=== PATIENT | male | born 1930 | race Caucasian/White ===

== ENCOUNTER → 2016-07-12 | Outpatient (CLI) | payer MEDICARE, BC ==
[2016-07-12 16:28] LABS: Blood Urea Nitrogen 33 mg/dL (9-20); Non-African American GFR(MDRD) >60 (>60 ml/min/1.73 sqM)
--- NOTE | 2016-07-13 08:08 | CT ---
EXAMINATION TYPE: CT angio neck DATE OF EXAM: 07/12/2016 7:47 PM COMPARISON: NONE HISTORY: Pt states of carotid stenosis. CT DLP: 259.5 mGycm CONTRAST: CTA cervical carotids is performed and with IV Contrast, patient injected with 65 mL of Omnipaque 350 . Contrast CTA of the cervical carotids was performed 3-D reconstruction imaging obtained at a separate workstation. Right carotid system: Mild plaque is seen of the right common carotid artery. There is mild plaque a lso noted at the carotid bulb. Estimated diameter reduction is less than 50%. ECA is patent. Righ t vertebral artery appears unremarkable. Left carotid system: Mild plaque is seen of the left common carotid artery. There is mild plaque als o noted at the carotid bulb. Estimated diameter reduction is approximately 50%. ECA is patent. Lef t vertebral artery appears unremarkable. IMPRESSION: 1. Estimated diameter reduction Right ICA less than 50% 2. Estimated diameter reduction Left ICA approximately 50%
== END | disposition home or self-care (01) ==
LOC: RADCTMAIN 15:44
PROVIDERS: ATTEND Internal Medicine
DX: I65.23 Occlusion and stenosis of bilateral carotid arteries (principal)
CPT/HCPCS: 82565; 84520; 70498; 36415; Q9967

== ENCOUNTER 2016-12-13 08:05 | Emergency (ER) | payer MEDICARE, BC ==
[2016-12-13 08:13] VITALS: BP 139/65; PULSE 58; RESP 18; TEMP 97
[2016-12-13] MEDS ORDERED: DIPH,PERTUS(ACELL)TETVAC-LF 0.5 ML VIAL IM ONE (08:41)
--- NOTE | 2016-12-13 08:44 | ED ---
General Adult HPI - General Chief complaint: Wound/Laceration Stated complaint: lac on rt arm Time Seen by Provider: 12/13/16 08:18 Source: patient, RN notes reviewed Mode of arrival: wheelchair Limitations: no limitations - History of Present Illness Initial comments: 86-year-old male who presents emergency room today with a chief complaint of a laceration to the back of the right forearm. He states he was prescribed 20 tripped falling against his tractor causing a laceration. He denies any head injury or loss consciousness. States unsure of his tetanus status. He denies any other complaints or associated symptoms. Patient denies any recent fever, chills, shortness of breath, chest pain, back pain, abdominal pain, nausea or vomiting, numbness or tingling, dysuria or hematuria, constipation or diarrhea, headaches or visual changes, or any other complaints. - Related Data Allergies Allergy/AdvReac Type Severity Reaction Status Date / Time No Known Allergies Allergy Verified 12/13/16 08:13 Review of Systems ROS Statement: Those systems with pertinent positive or pertinent negative responses have been documented in the HPI. ROS Other: All systems not noted in ROS Statement are negative. Past Medical History Past Medical History: Hypertension History of Any Multi-Drug Resistant Organisms: None Reported Past Surgical History: Unable to Obtain Past Psychological History: No Psychological Hx Reported Smoking Status: Never smoker Past Alcohol Use History: Occasional Past Drug Use History: None Reported General Exam - General Exam Comments Initial Comments: General: The patient is awake and alert, in no distress, and does not appear acutely ill. Neck: The neck is supple, there is no tenderness or JVD. Cardiovascular: There is a regular rate and rhythm. No murmur, rub or gallop is appreciated. Respiratory: Lungs are clear to auscultation, respirations are non-labored, breath sounds are equal. No wheezes, stridor, rales, or rhonchi. Musculoskeletal: Patient shows full range of motion. Sensation intact. Pulses equal bilaterally 2+. Strength 5/5 in all areas. Neurological: A&O x 3. CN II-XII intact, There are no obvious motor or sensory deficits. Coordination appears grossly intact. Speech is normal. Skin: 5 cm linear laceration to the posterior aspect of the right forearm. No active bleeding. Psychiatric: Normal mood and affect. Limitations: no limitations Course Vital Signs 12/13/16 08:08 Temperature 97.0 F L Pulse Rate 58 L Respiratory 18 Rate Blood Pressure 139/65 O2 Sat by Pulse 97 Oximetry Procedures - Procedures Initial comment: 5 cm linear laceration to the back of the right forearm. The skin was anesthetized with 1% lidocaine. The laceration was then cleansed with Betadine and irrigated with normal saline. The wound was inspected, and there was no evidence of injury to deep structures. No foreign body was noted in the wound. A total of 9 skin sutures were placed utilizing 4-0 nylon. Disposition Clinical Impression: Laceration Disposition: HOME SELF-CARE Condition: Good Instructions: Laceration (ED) Additional Instructions: Please return to the emergency room in 8-10 days to have sutures removed. Please watch for any signs of infection which may include increased pain, swelling, redness, fever or chills. Please return to emergency room for any signs of infection do occur. Please use clean soap and water over the area to prevent scabbing over your stitches. Please leave wound covered for the first 24-48 hours and then leave wound open to air. Please return to the emergency room for any other concerns. Referrals: Sergei Acevedo MD [Primary Care Provider] - 1-2 days Time of Disposition: 08:43
== END 2016-12-13 09:09 | disposition home or self-care (01) ==
LOC: EC 08:05
DX: S51.811A Laceration without foreign body of right forearm, initial encounter (principal); Z23 Encounter for immunization; W18.09XA Striking against other object with subsequent fall, initial encounter
CPT/HCPCS: 12002; 90471; 90715; 99282

== ENCOUNTER 2016-12-15 06:21 | Emergency (ER) | payer MEDICARE, BC ==
[2016-12-15 06:29] VITALS: RESP 18
--- NOTE | 2016-12-15 08:04 | XR ---
EXAMINATION TYPE: XR elbow complete RT DATE OF EXAM: 12/15/2016 CLINICAL HISTORY: Pain near suture site. TECHNIQUE: Frontal, lateral and oblique images of the right elbow are obtained. COMPARISON: None FINDINGS: There is no acute fracture/dislocation evident in the right elbow. Prior well-corticated f racture fragments are seen adjacent to the lateral epicondyles and anterior to the radius. The home health caregiver ior joint capsule is distended by joint effusion. Soft tissue swelling seen over the antecubital manuel a. IMPRESSION: 1. There is no acute fracture or dislocation in the right elbow. 2. Soft tissue swelling and joint effusion within the right elbow.
--- NOTE | 2016-12-15 08:17 | ED ---
General Adult HPI - General Chief complaint: Extremity Injury, Upper Stated complaint: arm pain-revisit after sutures Time Seen by Provider: 12/15/16 07:00 Source: patient, RN notes reviewed Mode of arrival: ambulatory Limitations: no limitations - History of Present Illness Initial comments: This is a 86-year-old male who presents emergency department after having fallen a couple days ago. Patient states he was in the emergency department that time to get sutured up. Patient states he had no elbow pain at that time but a couple days later started having significant elbow pain to the point where hurts even to lift his arm. Patient states it also hurts to palpate the elbow. Patient states his been no other injury since that time. Patient denies any hand pain and wrist pain or shoulder pain. Patient denies any other pain or any other complaints at this time. - Related Data Home Medications Medication Instructions Recorded Confirmed Aspirin [Children's Aspirin] 81 mg PO DAILY 12/15/16 12/15/16 Enalapril (Unknown Dose) 1 tab PO DAILY 12/15/16 12/15/16 Simvastatin (Unknown Dose) 1 tab PO DAILY 12/15/16 12/15/16 Allergies Allergy/AdvReac Type Severity Reaction Status Date / Time No Known Allergies Allergy Verified 12/15/16 06:29 Review of Systems ROS Statement: Those systems with pertinent positive or pertinent negative responses have been documented in the HPI. ROS Other: All systems not noted in ROS Statement are negative. Past Medical History Past Medical History: Hearing Disorder / Deafness, Hyperlipidemia, Hypertension Additional Past Medical History / Comment(s): [facility] History of Any Multi-Drug Resistant Organisms: None Reported Past Surgical History: Coronary Bypass/CABG, Orthopedic Surgery Additional Past Surgical History / Comment(s): bypass 2005, right knee Past Psychological History: No Psychological Hx Reported Smoking Status: Never smoker Past Alcohol Use History: Daily Past Drug Use History: None Reported General Exam - General Exam Comments Initial Comments: GENERAL Patient is well-developed and well-nourished. Patient is in mild distress. EYES Patient's pupils are equal and round. Extraocular motion is intact SKIN Unremarkable NEURO The patient is alert and oriented 3 PYSCH Patient has normal interpersonal interactions. MUSCULOSKELETAL Elbow is very tender to palpate is mildly swollen. Limitations: no limitations Course Vital Signs 12/15/16 06:22 Temperature 99.0 F Pulse Rate 66 Respiratory 18 Rate Blood Pressure 117/62 O2 Sat by Pulse 96 Oximetry Procedures - Orthopedic Splinting/Casting Injury #1 Upper Extremity Injury Location: elbow Upper Extremity Immobilizer: posterior splint Additional Comments: This is a long arm splint. Medical Decision Making - Medical Decision Making X-ray of the elbow shows no acute fracture dislocation however there is some joint effusion possible occult fracture. Patient was supposed to go to a today to follow-up so that they can determine if they think it's occult fracture versus infection. Disposition Clinical Impression: Occult fracture of elbow Disposition: HOME SELF-CARE Condition: Good Instructions: Elbow Fracture in Adults (ED) Additional Instructions: Patient [facility] with [facility] Referrals: Sergei Acevedo MD [Primary Care Provider] - 1-2 days Time of Disposition: 08:16
[2016-12-15 08:47] VITALS: BP 152/69; PULSE 62; TEMP 97
== END 2016-12-15 08:47 | disposition home or self-care (01) ==
LOC: EC 06:21
DX: S42.401A Unspecified fracture of lower end of right humerus, initial encounter for closed fracture (principal); E78.5 Hyperlipidemia, unspecified; I10 Essential (primary) hypertension; Z95.1 Presence of aortocoronary bypass graft; Z79.82 Long term (current) use of aspirin; Z79.899 Other long term (current) drug therapy; W19.XXXA Unspecified fall, initial encounter
CPT/HCPCS: 29105; 99283

== ENCOUNTER 2018-03-01 09:20 | Emergency (ER) | payer MEDICARE, BC ==
[2018-03-01 09:27] VITALS: TEMP 98.1
[2018-03-01] MEDS ORDERED: SODIUM CHLORIDE 0.9% 500 ML 500 ML IV STA (09:46)
[2018-03-01] MEDS ORDERED: MECLIZINE 12.5 MG TAB PO STA (09:46)
--- NOTE | 2018-03-01 09:49 | ED ---
General Adult HPI - General Chief complaint: Dizziness Stated complaint: Dizziness Time Seen by Provider: 03/01/18 09:36 Source: patient, RN notes reviewed, old records reviewed Mode of arrival: wheelchair Limitations: no limitations - History of Present Illness Initial comments: 87-year-old male presents for evaluation of dizziness. Patient states that at 4 AM which was proximally 6 hours prior to arrival patient developed a sensation that the room was spinning. He felt unsteady. Denied headache. Denies vision changes. No chest pain or shortness of breath. Denies focal numbness or weakness. Denies abdominal pain nausea vomiting. Denies fever. Symptoms are somewhat improved at the time of my evaluation however he does have some mild persistent symptoms. Patient has past medical history of CAD status post CABG. - Related Data Home Medications Medication Instructions Recorded Confirmed Aspirin EC [Ecotrin Low Dose] 81 mg PO HS 03/01/18 03/01/18 Lisinopril-Hctz 20-12.5 mg 1 tab PO DAILY 03/01/18 03/01/18 [Zestoretic 20-12.5] Metoprolol Tartrate [Lopressor] 25 mg PO HS 03/01/18 03/01/18 Naproxen Sodium [Aleve] 220 mg PO BID PRN 03/01/18 03/01/18 Simvastatin [Zocor] 20 mg PO HS 03/01/18 03/01/18 Sulindac 150 mg PO HS 03/01/18 03/01/18 amLODIPine BESYLATE/BENAZEPRIL 1 cap PO HS 03/01/18 03/01/18 [Lotrel 5-20 mg Capsule] Previous Rx's Medication Instructions Recorded Meclizine [Antivert] 25 mg PO BID PRN #14 tab 03/01/18 Allergies Allergy/AdvReac Type Severity Reaction Status Date / Time No Known Allergies Allergy Verified 03/01/18 10:08 Review of Systems ROS Statement: Those systems with pertinent positive or pertinent negative responses have been documented in the HPI. ROS Other: All systems not noted in ROS Statement are negative. Past Medical History Past Medical History: Hearing Disorder / Deafness, Hyperlipidemia, Hypertension Additional Past Medical History / Comment(s): [place] History of Any Multi-Drug Resistant Organisms: None Reported Past Surgical History: Coronary Bypass/CABG, Orthopedic Surgery Additional Past Surgical History / Comment(s): bypass 2005, right knee Past Psychological History: No Psychological Hx Reported Smoking Status: Never smoker Past Alcohol Use History: Daily Past Drug Use History: None Reported General Exam Limitations: no limitations General appearance: alert, in no apparent distress Head exam: Present: atraumatic, normocephalic Eye exam: Present: normal appearance, PERRL, EOMI. Absent: nystagmus Neck exam: Present: normal inspection. Absent: tenderness, meningismus Respiratory exam: Present: normal lung sounds bilaterally. Absent: respiratory distress, wheezes Cardiovascular Exam: Present: regular rate, normal rhythm GI/Abdominal exam: Present: soft. Absent: distended, tenderness Extremities exam: Present: normal inspection, normal capillary refill. Absent: calf tenderness Neurological exam: Present: alert, oriented X3, CN II-XII intact, other (No ataxia, normal finger to nose, nonfocal neurologic exam). Absent: motor sensory deficit Psychiatric exam: Present: normal affect, normal mood Skin exam: Present: warm, dry, intact. Absent: cyanosis, diaphoretic, erythema Course Vital Signs 03/01/18 03/01/18 03/01/18 09:26 09:34 10:00 Temperature 98.1 F Pulse Rate 65 Respiratory 18 9 L Rate Blood Pressure 124/64 152/81 O2 Sat by Pulse 98 98 97 Oximetry 03/01/18 03/01/18 11:00 12:00 Temperature Pulse Rate 56 L 61 Respiratory 16 23 Rate Blood Pressure 140/66 115/58 O2 Sat by Pulse 94 L Oximetry EKG Findings - EKG Comments: EKG Findings:: EKG: Normal sinus rhythm, low voltage QRS, incomplete right bundle, rate of 64, MO interval 196, QRS duration 104, QTC 422 Medical Decision Making - Medical Decision Making 87-year-old male presenting for evaluation of dizziness. Patient describes room spinning sensation. No changes in hearing, no pain in his ears, no URI symptoms, no focal numbness or weakness. 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 This is old. Patient has had previous endarterectomy and has known disease according to his primary care physician Dr. Acevedo. CBC and CMP are within normal limits, urinalysis is negative. Patient given meclizine and normal saline. On reevaluation is feeling better. He is accompanied by his grandson. Case discussed with his primary care physician Dr. Acevedo, patient is stable for continued outpatient evaluation. - Lab Data Result diagrams: 03/01/18 09:54 03/01/18 09:54 Lab Results 03/01/18 03/01/18 03/01/18 Range/Units 09:54 09:54 12:00 WBC 8.3 (3.8-10.6) k/uL RBC 4.17 L (4.30-5.90) m/uL Hgb 12.3 L (13.0-17.5) gm/dL Hct 36.1 L (39.0-53.0) % MCV 86.6 (80.0-100.0) fL MCH 29.5 (25.0-35.0) pg MCHC 34.0 (31.0-37.0) g/dL RDW 13.5 (11.5-15.5) % Plt Count 291 (150-450) k/uL Neutrophils % 66 % Lymphocytes % 18 % Monocytes % 7 % Eosinophils % 5 % Basophils % 1 % Neutrophils # 5.5 (1.3-7.7) k/uL Lymphocytes # 1.5 (1.0-4.8) k/uL Monocytes # 0.6 (0-1.0) k/uL Eosinophils # 0.4 (0-0.7) k/uL Basophils # 0.1 (0-0.2) k/uL Sodium 142 (137-145) mmol/L Potassium 4.1 (3.5-5.1) mmol/L Chloride 108 H (98-107) mmol/L Carbon Dioxide 24 (22-30) mmol/L Anion Gap 10 mmol/L BUN 31 H (9-20) mg/dL Creatinine 0.94 (0.66-1.25) mg/dL Est GFR (CKD-EPI)AfAm 86 (>60 ml/min/1.73 sqM) Est GFR (CKD-EPI)NonAf 74 (>60 ml/min/1.73 sqM) Glucose 133 H (74-99) mg/dL Calcium 9.7 (8.4-10.2) mg/dL Magnesium 1.9 (1.6-2.3) mg/dL Total Bilirubin 0.5 (0.2-1.3) mg/dL AST 15 L (17-59) U/L ALT 22 (21-72) U/L Alkaline Phosphatase 60 (38-126) U/L Total Protein 6.9 (6.3-8.2) g/dL Albumin 4.2 (3.5-5.0) g/dL Urine Color Yellow Urine Appearance Clear (Clear) Urine pH 6.0 (5.0-8.0) Ur Specific [place] 1.017 (1.001-1.035) Urine Protein Negative (Negative) Urine Glucose (UA) Negative (Negative) Urine Ketones Negative (Negative) Urine Blood Negative (Negative) Urine Nitrite Negative (Negative) Urine Bilirubin Negative (Negative) Urine Urobilinogen <2.0 (<2.0) mg/dL Ur Leukocyte Esterase Negative (Negative) Disposition Clinical Impression: Vertigo Disposition: HOME SELF-CARE Condition: Good Instructions: Dizziness (ED) Prescriptions: Meclizine [Antivert] 25 mg PO BID PRN #14 tab PRN Reason: Vertigo Is patient prescribed a controlled substance at d/c from ED?: No Referrals: Sergei Acevedo MD [Primary Care Provider] - 1-2 days Time of Disposition: 14:07
[2018-03-01 10:15] LABS: Basophils # (A) 0.1 k/uL (0-0.2); Basophils % (A) 1 %; Eosinophils # (A) 0.4 k/uL (0-0.7); Eosinophils % (A) 5 %; HCT 36.1 % (39.0-53.0); HGB 12.3 gm/dL (13.0-17.5); Lymphocytes # (A) 1.5 k/uL (1.0-4.8); Lymphocytes % (A) 18 %; MCH 29.5 pg (25.0-35.0); MCV 86.6 fL (80.0-100.0); Mean Platelet Volume 6.5; Monocytes # (A) 0.6 k/uL (0-1.0); Monocytes % (A) 7 %; Neutrophils # (A) 5.5 k/uL (1.3-7.7); Neutrophils % (A) 66 %; Platelet Count 291 k/uL (150-450); RBC 4.17 m/uL (4.30-5.90); RDW 13.5 % (11.5-15.5); WBC 8.3 k/uL (3.8-10.6)
[2018-03-01 10:26] LABS: Albumin 4.2 g/dL (3.5-5.0); Calcium 9.7 mg/dL (8.4-10.2); Magnesium 1.9 mg/dL (1.6-2.3); Potassium 4.1 mmol/L (3.5-5.1); Total Bilirubin 0.5 mg/dL (0.2-1.3); Total Protein 6.9 g/dL (6.3-8.2)
--- NOTE | 2018-03-01 10:38 | CT ---
EXAMINATION TYPE: CT brain wo con DATE OF EXAM: 03/01/2018 COMPARISON: 07/12/2016 HISTORY: None CT DLP: 1049.4 mGycm Automated exposure control for dose reduction was used. FINDINGS: Mild generalized degenerative change. There is an area of low attenuation involving posterior right p arietal lobe extending in the temporal parietal junction compatible with remote ischemia. Intracranial atherosclerotic changes seen. No midline shift or mass effect. Faint periventricular low -attenuation suggestive of remote microvascular ischemia. There is a small area of low density seen w ith in the CSF space posterior to the medulla which may represent a small amount of air. Calvarium is intact. IMPRESSION: Next 1. No acute hemorrhage or mass effect 2. There is a small bubble of air within the CSF space posterior to the medulla of indeterminate etio logy. 3. Findings compatible with remote ischemia and encephalomalacia as discussed above involving the rig ht parietal lobe.
--- NOTE | 2018-03-01 11:00 | XR ---
EXAMINATION TYPE: XR chest 2V DATE OF EXAM: 03/01/2018 COMPARISON: NONE HISTORY: Shortness of breath and dizziness. TECHNIQUE: Frontal and lateral views of the chest are obtained. FINDINGS: There is no focal air space opacity, pleural effusion, or pneumothorax seen. The cardiac silhouette size is enlarged. Post CABG changes are seen of the chest. Pleural plaques are noted bila terally. This is suggestive of prior asbestos exposure. The osseous structures are intact. Bridging a nterior osteophytes are seen throughout the thoracic spine suggestive of diffuse idiopathic skeletal hyperostosis. Degenerative changes are seen of the shoulders. IMPRESSION: No acute cardiopulmonary process. 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
[2018-03-01 12:24] LABS: Appearance,Urine Clear (Clear); Bilirubin,Urine Negative (Negative); Blood,Urine Negative (Negative); Color,Urine Yellow; Glucose,Urine (UA) Negative (Negative); Ketones,Urine Negative (Negative); Leukocyte Esterase,Urine Negative (Negative); Nitrite,Urine Negative (Negative); Protein,Urine Negative (Negative); Specific Gravity,Urine 1.017 (1.001-1.035); Urobilinogen,Urine <2.0 mg/dL (<2.0)
[2018-03-01 14:26] VITALS: BP 117/58; PULSE 67; RESP 18
== END 2018-03-01 14:25 | disposition home or self-care (01) ==
LOC: EC 09:20
DX: R42 Dizziness and giddiness (principal); G93.89 Other specified disorders of brain; Z86.73 Personal history of transient ischemic attack (TIA), and cerebral infarction without residual deficits; I10 Essential (primary) hypertension; E78.5 Hyperlipidemia, unspecified; I25.10 Atherosclerotic heart disease of native coronary artery without angina pectoris; H91.90 Unspecified hearing loss, unspecified ear; Z79.1 Long term (current) use of non-steroidal anti-inflammatories (NSAID); Z79.82 Long term (current) use of aspirin; Z79.899 Other long term (current) drug therapy; Z95.1 Presence of aortocoronary bypass graft; Z98.890 Other specified postprocedural states
CPT/HCPCS: 36415; 70450; 71046; 80053; 81003; 83735; 85025; 93005; 96360; 99285

== ENCOUNTER → 2019-04-26 | Outpatient (CLI) | payer MEDICARE, BC ==
--- NOTE | 2019-04-26 15:13 | XR ---
EXAMINATION TYPE: XR chest 2V DATE OF EXAM: 04/26/2019 COMPARISON: 03/01/2018 INDICATION: Status post open heart surgery, MRI clearance TECHNIQUE: Frontal and lateral views of the chest are obtained. FINDINGS: The heart size is normal. The pulmonary vasculature is normal. Pleural plaques are present bilaterally, present previously. Sternotomy wires are present from prior surgery. No suspicious epicardial leads are evident.. IMPRESSION: 1. Bilateral pleural plaquing
== END | disposition home or self-care (01) ==
LOC: RADXRMAIN 14:47
PROVIDERS: ATTEND Orthopaedic Surgery
DX: J92.9 Pleural plaque without asbestos (principal); Z98.890 Other specified postprocedural states
CPT/HCPCS: 71046

== ENCOUNTER → 2019-05-28 | Outpatient (CLI) | payer MEDICARE, BC ==
[2019-05-28 16:07] LABS: HCT 36.9 % (39.0-53.0); HGB 12.3 gm/dL (13.0-17.5); MCH 28.6 pg (25.0-35.0); MCHC 33.4 g/dL (31.0-37.0); MCV 85.8 fL (80.0-100.0); Platelet Count 299 k/uL (150-450); RBC 4.31 m/uL (4.30-5.90); WBC 8.8 k/uL (3.8-10.6)
[2019-05-28 16:10] LABS: INR 0.9 (<1.2); Partial Thromboplastin Time 24.3 sec (22.0-30.0); Prothrombin Time 9.9 sec (9.0-12.0)
[2019-05-28 16:13] LABS: Appearance,Urine Clear (Clear); Bilirubin,Urine Negative (Negative); Blood,Urine Negative (Negative); Color,Urine Yellow; Glucose,Urine (UA) Negative (Negative); Ketones,Urine Negative (Negative); Leukocyte Esterase,Urine Negative (Negative); Nitrite,Urine Negative (Negative); Protein,Urine Negative (Negative); Urobilinogen,Urine <2.0 mg/dL (<2.0)
[2019-05-28 16:15] LABS: Albumin 4.1 g/dL (3.5-5.0); Calcium 9.4 mg/dL (8.4-10.2); Potassium 4.4 mmol/L (3.5-5.1); Total Bilirubin 0.4 mg/dL (0.2-1.3); Total Protein 6.5 g/dL (6.3-8.2)
== END | disposition home or self-care (01) ==
LOC: LABPAT 14:45
PROVIDERS: ATTEND Orthopaedic Surgery
DX: Z01.812 Encounter for preprocedural laboratory examination (principal)
CPT/HCPCS: 36415; 80053; 81003; 85027; 85610; 85730; 87070

== ENCOUNTER 2019-06-17 07:58 | Inpatient (IN) | payer MEDICARE, BC ==
[2019-05-31 12:10] VITALS: BMI 28.5
[~2019-06-17 07:58] MED LIST: ACETAMINOPHEN TAB 500 MG TAB PO ONE; GABAPENTIN 300 MG CAP PO ONE; MELOXICAM 7.5 MG TAB PO ONE; TRANEXAMIC ACID 1,000 MG in SODIUM CHLORIDE 0.9% 100 ML IVPB ONE
[2019-06-17] MEDS: ONDANSETRON 4 MG/2 ML VIAL IVP ONE ×2 (09:05→19:08)
[2019-06-17] MEDS ORDERED: LIDOCAINE 1% 20 ML VIAL (10MG/ML) FOR IV START INTRADERMA ONE (09:13)
[2019-06-17] MEDS ORDERED: LACTATED RINGERS 1,000 ML IV ONE (09:13)
[2019-06-17] MEDS ORDERED: ONDANSETRON 4 MG/2 ML VIAL IVP ONE (09:15)
[2019-06-17] MEDS ORDERED: MIDAZOLAM 2 MG/2 ML VIAL IV ONE (09:23)
[2019-06-17] MEDS ORDERED: ROPIVACAINE 0.2%-NS ON-Q PUMP 1,090 MG, EMPTY PAIN BALL 1 EACH MISCELLANE PRN (09:43)
--- NOTE | 2019-06-17 09:46 | P.ANPRN ---
Procedure Note - Anesthesia - Nerve Block Performed Right Adductor Canal Infusion Time Out Performed: Yes Date of Procedure: 06/17/19 Procedure Start Time: :23 Procedure Stop Time: :33 Location of Patient: PreOp Indication: Acute Post-Operative Pain, Requested by Surgeon Sedation Type: Sedate with meaningful contact maintained Preparation: Sterile Prep, Sterile Dressing Position: Supine Catheter: Indwelling Needle Types: Pajunk Needle Gauge: 21 Ultrasound used to visualize needle placement: Yes Ultrasound used to observe medication spread: Yes Blood Aspirated: No Pain Paresthesia on Injection Noted: No Resistance on Injection: Normal Image Stored and Saved: Yes Events: Uneventful and Well Tolerated (ropi .5% 20cc plus dexamethasone 4mg)
[2019-06-17] MEDS ORDERED: SODIUM CHLORIDE 0.9% 100 ML BAG ONE (10:16)
[2019-06-17] MEDS ORDERED: PROPOFOL 10 MG/ML 20 ML VIAL IV ONE (10:16)
[2019-06-17] MEDS ORDERED: MIDAZOLAM 2 MG/2 ML VIAL ONE (10:16)
[2019-06-17] MEDS ORDERED: fentaNYL (PF) 50 MCG/ML 2 ML AMP ONE (10:16)
[2019-06-17] MEDS ORDERED: ePHEDrine SULFATE/0.9% NACL/PF 50 MG/5 ML SYRINGE IV ONE (10:16)
[2019-06-17] MEDS ORDERED: TRANEXAMIC ACID 1,000 MG/10 ML VIAL ONE (10:16)
[2019-06-17] MEDS ORDERED: ceFAZolin 3,000 MG in SODIUM CHLORIDE 0.9% IRRIGATIO 3,000 ML IRRIGATION ONE (10:18)
[2019-06-17] MEDS: ROPIVACAINE 246.25 MG, EPINEPHrine 0.5 MG, KETOROLAC 30 MG, cloNIDine HCL/PF 80 MCG, WA... MISCELLANE ONE ×10 (11:01→11:57)
--- NOTE | 2019-06-17 12:17 | P.OP ---
Date of Procedure: 06/17/19 Procedure(s) Performed: PREOPERATIVE DIAGNOSIS: Right knee severe osteoarthritis with genu varum POSTOPERATIVE DIAGNOSIS: Right knee severe osteoarthritis with genu varum OPERATION: Right knee cemented total replacement arthroplasty. ANESTHESIA: Spinal ESTIMATED BLOOD LOSS: 50 ml. QUALITY AND RELIABILITY ENGINEER: Stephie Charles PA-C (assistance with: patient positioning, retraction, exposure, hemostasis, leg positioning, implantation, irrigation, closure, dressing) COMPLICATIONS: None apparent. COMPONENTS IMPLANTED: Journey II BCS total knee system from [employer], [employer] computer templating with guides INDICATIONS: Mr. Romo is an 88-year-old male with a history of right knee osteoarthritis. The patient's knee is end-stage, and conservative management has failed. The operation of knee replacement has been discussed at length in the office, as well as potential risks and complications. These are inclusive of, but not limited to: bleeding, infection, scarring, discomfort, blood vessel and nerve damage, need for further surgery, failure to relieve symptoms, persistence, recurrence, or worsening of problems, loosening, dislocation, wear, blood clot, pulmonary embolism, , gait dysfunction, stiffness, and other risks as discussed in the office. The patient elects to proceed and the consent form has been signed. PROCEDURE: The patient was taken to the operating room and positioned on the operating room table in the supine position. Anesthesia was initiated. Care was taken to make sure that all pressure points were adequately padded. The operative lower extremity was prepped and draped in the usual aseptic fashion using ChloraPrep. Ioban drape was used for the case and the patient received intravenous antibiotics within one hour of the incision. A pneumotourniquet and leg helton were used for the case. The limb was exsanguinated with an Esmarch bandage and the tourniquet was inflated to 350 mmHg. Time-out was called confirming the patient's identity, side, procedure and administration of antibiotics and tranexamic acid. The incision was then created midline directly over the right knee, carried down through skin and into the subcutaneous tissues and down to fascia. Full thickness subcutaneous medial flap was developed. Medial parapatellar arthrotomy was performed and the interior of the knee was inspected. There was end-stage osteoarthritis of the knee with a mild to moderate genu valgum type deformity. The fat pad was excised and proximal medial release on the tibia was completed using meticulous dissection and a curved osteotome. The anterior cruciate ligament was taken down. Note was made of significant attrition of the anterior and significant degenerative appearance of the cruciate ligaments. The exposure was excellent. The knee was flexed 90 degrees and the patella was everted. The [employer] pre- made distal cutting block was attached and pinned into position. The planned cut was analyzed visually and with the alignment lucy and found to be satisfactory without the need for any adjustment. The oscillating saw was then used to make the distal femoral cut and make the alignment holes for the 5 in 1 block. This cut was confirmed to be flat with the flat end of an osteotome. The 5 in 1 block was then used to create the anterior posterior condylar resections and the chamfer cuts. The retractors were placed around the tibia and the tibial surface was addressed. The [employer] pre-made guide was placed onto the exposed tibial surface and pinned into position to iglesia the rotational alignment. The alignment of the guide was checked for depth of plannned resection, slope, and varus valgus. Guide was confirmed to be in good position and the tibial cut was then created with protection of the posterior neurovascular structures and the collateral ligaments. The tibial cut surface was removed and sized. Spacer block technique was then used to confirm that the flexion and extension gaps were equal. Soft tissue releases and adjustment of the tibial and/or femoral cuts were made, as necessary, until the gaps were equal. This included release of the posterior cruciate ligament, which was excessively tight in this patient. Prior to placing trial components, anesthetic solution consisting of ropivicaine with epinephrine, ketorolac, and clonidine was injected carefully and methodically in a grid pattern using aspiration technique into the soft tissue around the knee circumferentially, starting with the deeper tissues first and progressing to fascia, and then finally the skin/subcutaneous tissue. Particular care was taken when injecting the posterior capsule, with avoidance of the midline posterior area. The trial components were inserted. The tibial tray was allowed to self center and the patella was noted to track very well. The position of the tibial component was marked and noted to be nearly exactly aligned with the pre-drilled holes from the [employer] guide. The tibia was then finished for a stemmed tibial component. Patellar resurfacing was performed using a reamer. The size of the required p atellar component was estimated and the patellar surface was then reamed down to a residual thickness which would recreate the [place] thickness with the component. The exact placement of the patellar component was adjusted for position based on preoperative x-rays and intraoperative findings. Trial components were removed and the cut surfaces of the bone were pulse lavaged thoroughly and dried. Cement was mixed on the back table and applied to the final components. Cement was then applied to the tibial surface and pressurized into the surface using finger pressurization technique. The tibial component was then applied and excess cement was removed after it was impacted securely and noted to be flush with the cut surface. In similar fashion, the cement was applied to the cut femoral surface, pressurized in using finger pressurization and the component was impacted into place. Excess cement was removed. The polyethylene spacer was then implanted and locked into position. The patellar component was then applied in similar technique and a patellar clamp was used to hold the patella in place as the cement hardened. Once the cement had fully hardened, the knee was reinspected. Any other cement extrusion was removed and final kinematic testing showed range of motion from 0 to 130 degrees with excellent stability, both medially and laterally and appropriate alignment of the leg. Patellar tracking was excellent. The knee was then thoroughly pulse lavaged with normal saline. The tourniquet was deflated and hemostasis was obtained with electrocautery and IV tranexamic acid, 1 g given at the start of the operation and 1 g at the start of closure. Closure was with #2 Ethibond in the fascia/capsule and supplemented with #2 Quill, 2-0 Vicryl suture was used for the subcutaneous tissues and 3-0 Quill for the skin. Dermabond/Steri-Strips were then applied. A lightly compressive dressing was applied using Webril and an Kip wrap. [facility] and [facility] to the recovery room in stable condition. Sponge and needle counts were correct.
[2019-06-17] MEDS ORDERED: HYDROmorphone 0.5 MG/0.5 ML SYRINGE IVP PRN ×3 (12:44)
[2019-06-17] MEDS ORDERED: NALOXONE 0.4 MG/ML 1 ML VIAL IV PRN (12:44)
[2019-06-17] MEDS ORDERED: TEMAZEPAM 15 MG CAP PO PRN (12:44)
[2019-06-17] MEDS ORDERED: MAGNESIUM HYDROXIDE 2,400 MG/10 ML CUP PO PRN (12:44)
[2019-06-17] MEDS ORDERED: BISACODYL 10 MG SUPP RECTAL PRN (12:44)
[2019-06-17] MEDS ORDERED: NA PHOS,M-B/NA PHOS,DI-BA 133 ML ENEMA RECTAL PRN (12:44)
[2019-06-17] MEDS ORDERED: HYDROcodone/APAP 5-325MG 1 EACH TAB PO PRN (12:44)
[2019-06-17] MEDS ORDERED: ONDANSETRON 4 MG/2 ML VIAL IVP PRN (12:44)
--- NOTE | 2019-06-17 13:13 | XR ---
EXAMINATION TYPE: XR knee limited RT DATE OF EXAM: 06/17/2019 CLINICAL HISTORY: Postoperative evaluation Two views of the right knee are submitted. Identified are changes of total knee arthroplasty with femoral and tibial components appearing well seated. Postsurgical soft tissue changes are noted. Alignment is anatomic.
[2019-06-17] MEDS ORDERED: FLUTICASONE 50MCG/SPRAY NASAL 16GM EA NOSTRIL PRN (16:37)
--- NOTE | 2019-06-17 16:38 | P.CONS ---
History of Present Illness - Reason for Consult Consult date: 06/17/19 Medical management Requesting physician: Estrada Rolle - Chief Complaint Right knee pain - History of Present Illness 88-year-old male with PMH of hypertension and osteoarthritis presents to [facility] for elective right total knee replacement. He was seen and examined after the procedure. [facility] has been consulted for medical management of this patient. Patient reports vague 3-4 out of 10 knee pain in his right knee. He otherwise has no complaints. He denies any headache, lower extremity edema, nausea or vomiting, fever or chills, chest pain, shortness of breath, palpitations, changes in urination or bowel habits. No changes in appetite or weight. Patient denies any dizziness, numbness/weakness/tingling of the extremities. Patient does report sinus drainage that is chronic that occasionally causes him to cough up green sputum. Review of Systems Pertinent positives and negatives as discussed in HPI, a complete review of systems was performed and all other systems are negative. Past Medical History Past Medical History: Coronary Artery Disease (CAD), Hearing Disorder / Deafness, Hyperlipidemia, Hypertension, Osteoarthritis (OA) Additional Past Medical History / Comment(s): [facility]-Hearing aids., Right knee pain, states knee locks up after walking distance. History of Any Multi-Drug Resistant Organisms: None Reported Past Surgical History: Coronary Bypass/CABG, Orthopedic Surgery Additional Past Surgical History / Comment(s): bypass 2004, right knee arthroscopy Past Anesthesia/Blood Transfusion Reactions: No Reported Reaction Past Psychological History: No Psychological Hx Reported Smoking Status: Never smoker Past Alcohol Use History: Daily Additional Past Alcohol Use History / Comment(s): 1 shot whiskey every night. Past Drug Use History: None Reported - Past Family History Father Family Medical History: Cancer Additional Family Medical History / Comment(s): bladder cancer Medications and Allergies Home Medications Medication Instructions Recorded Confirmed Type Aspirin EC [Ecotrin Low Dose] 81 mg PO DAILY 03/01/18 06/17/19 History Lisinopril-Hctz 20-12.5 mg 1 tab PO QAM 03/01/18 06/17/19 History [Zestoretic 20-12.5] Metoprolol Tartrate [Lopressor] 25 mg PO HS 03/01/18 06/17/19 History Simvastatin [Zocor] 20 mg PO HS 03/01/18 06/17/19 History Sulindac 150 mg PO HS PRN 03/01/18 06/17/19 History amLODIPine BESYLATE/BENAZEPRIL 1 cap PO HS 05/31/19 06/17/19 History [Lotrel 5-20 MG] Aspirin 325 mg PO BID #60 tab 06/17/19 Rx HYDROcodone/APAP 5-325MG [[place] 1 - 2 each PO Q4-6H PRN #50 tab 06/17/19 Rx 5-325] Meloxicam [Mobic] 1 - 2 tab PO DAILY PRN #30 tab 06/17/19 Rx Sennosides-Docusate Sodium 1 tab PO BID #60 tablet 06/17/19 Rx [Senokot-S] Allergies Allergy/AdvReac Type Severity Reaction Status Date / Time Sulfa (Sulfonamide Allergy Unknown Rash/Hives Verified 06/17/19 08:50 Antibiotics) Physical Exam Vitals: Vital Signs Temp Pulse Resp BP BP Pulse Ox 06/17/19 13:30 59 L 16 122/59 98 06/17/19 13:15 58 L 16 116/54 99 06/17/19 13:00 56 L 16 105/56 98 06/17/19 12:46 59 L 16 110/58 92 L 06/17/19 12:39 96.8 F L 62 16 115/56 95 06/17/19 09:39 61 16 129/62 98 06/17/19 08:25 97.5 F L 65 16 147/66 97 Intake and Output 06/17/19 06/17/19 06/17/19 06:59 14:59 22:59 Intake Total 1021 Output Total 50 Balance 971 Intake: IV 1021 Output: Estimated Blood Loss 50 Other: Weight 81 kg General: [non toxic], [no distress], [appears at stated age] Derm: [warm], [dry] Head: [atraumatic], [normocephalic], [symmetric] Eyes: [EOMI], [no lid lag], [anicteric sclera] Mouth: [no lip lesion], [mucus membranes moist] Cardiovascular: [S1S2 reg], [mild systolic murmur], [positive DP pulse bilateral], [midsternal scar] Lungs: [CTA bilateral], [no rhonchi, no rales] , [no accessory muscle use] Abdominal: [soft], [ nontender to palpation], [no guarding], [no appreciable organomegaly] Ext: [no gross muscle atrophy], [no edema], [no contractures], [right knee dressed dressing clean dry and intact with pain pump] Neuro: [ CN II-XI grossly intact], [no focal neuro deficits] Psych: [Alert], [oriented], [appropriate affect] Assessment and Plan Assessment: Hypertension Sinusitis Right knee ulcer arthritis post replacement POD 0 BP 122/59. Plans: Continue amlodipine, lisinopril, hydrochlorothiazide, metoprolol. Monitor vitals, adjust medications as necessary. Plans: Flonase. Plans: Management as per orthopedic surgery. DVT prophylaxis: [SCD boots] Discussed with: [Patient] Anticipated discharge: [1-2 days] Anticipated discharge place: [Home] A total of [35] minutes was spent on the care of this complex patient more than 50% of the time was spent in counseling and care coordination. Patient names his son Joseph decision maker if he can make decisions for himself. Patient states that he would like to be no code.
[2019-06-17] MEDS: METOPROLOL TARTRATE 25 MG TAB PO SCH (20:31)
[2019-06-17] MEDS: SENNOSIDES-DOCUSATE SODIUM 1 EACH TAB PO SCH (20:32)
[2019-06-17] MEDS: amLODIPine 5 MG TAB PO SCH (20:32)
[2019-06-17] MEDS: ASPIRIN 325 MG TAB PO SCH (20:32)
[2019-06-17] MEDS: LISINOPRIL 20 MG TAB PO SCH (20:32)
[2019-06-17] MEDS: ATORVASTATIN 10 MG TAB PO SCH (20:32)
[2019-06-17] MEDS: LACTATED RINGERS 1,000 ML IV SCH ×2 (20:33→20:50)
[2019-06-18 06:44] LABS: Basophils % (A) 0 %; Eosinophils % (A) 0 %; HCT 32.4 % (39.0-53.0); HGB 10.8 gm/dL (13.0-17.5); Lymphocytes # (A) 0.7 k/uL (1.0-4.8); Lymphocytes % (A) 6 %; MCH 28.4 pg (25.0-35.0); MCHC 33.3 g/dL (31.0-37.0); MCV 85.3 fL (80.0-100.0); Mean Platelet Volume 7.5; Monocytes % (A) 8 %; Neutrophils # (A) 10.2 k/uL (1.3-7.7); Neutrophils % (A) 85 %; Platelet Count 292 k/uL (150-450); RDW 13.8 % (11.5-15.5)
--- NOTE | 2019-06-18 07:17 | P.PN ---
Progress Note - Text 06/18 652am 88-year-old male status post total knee replacement by Dr. Rolle. Patient has an On-Q pump for postop pain control, solution running at 8 mL an hour, VAS of 0. Patient doing very well plan to go home today
[2019-06-18] MEDS: MELOXICAM 7.5 MG TAB PO SCH (08:36)
[2019-06-18] MEDS: LISINOPRIL-HCTZ 20-12.5 MG 1 EACH TAB PO SCH (08:37)
[2019-06-18] MEDS: ASPIRIN 325 MG TAB PO SCH ×2 (08:37→20:26)
--- NOTE | 2019-06-18 11:45 | P.PN ---
Subjective Progress Note Date: 06/18/19 Principal diagnosis: Primary osteoarthritis right knee. Status post total right knee arthroplasty. This is an 88-year-old male who is postop day #1 status post total right knee arthroplasty. He is doing fairly well with no new complaints or concerns. He is sitting up in chair. His vital signs and labs are stable. Objective - Vital Signs Vital signs: Vital Signs Temp 98.1 F 06/18/19 07:16 Pulse 65 06/18/19 10:27 Resp 18 06/18/19 10:27 BP 123/73 06/18/19 07:16 Pulse Ox 96 06/18/19 07:16 Intake & Output 06/17/19 06/18/19 06/18/19 18:59 06:59 18:59 Intake Total 1317 1420 296 Output Total 50 600 Balance 1267 820 296 Weight 81 kg Intake: IV 1021 Intake, IV Titration 1300 Amount Lactated Ringers 1,000 ml 1200 @ 100 mls/hr IV .Q10H [facility] Rx#:[id number] ceFAZolin 2 gm In Sodium 100 Chloride 0.9% 50 ml @ 100 mls/hr IVPB ONCE ONE Rx# :[id number] Oral 296 120 296 Output: Urine 600 Estimated Blood Loss 50 Other: Voiding Method Urinal Toilet # Voids 2 - Exam This is a pleasant 88-year-old male in no acute distress. He is alert and oriented 3. Exam of the right knee reveals that his dressing is clean, dry and intact. He has full foot and ankle motion without difficulty or pain. He has full active extension of the knee and flexion to 90. Neurovascular status to the lower extremity is intact. - Labs CBC & Chem 7: 06/18/19 06:24 Labs: Abnormal Lab Results - Last 24 Hours (Table) 06/18/19 Range/Units 06:24 WBC 12.0 H (3.8-10.6) k/uL RBC 3.80 L (4.30-5.90) m/uL Hgb 10.8 L (13.0-17.5) gm/dL Hct 32.4 L (39.0-53.0) % Neutrophils # 10.2 H (1.3-7.7) k/uL Lymphocytes # 0.7 L (1.0-4.8) k/uL Microbiology - Last 24 Hours (Table) 06/17/19 12:20 Gram Stain - Preliminary Knee - Right Wound Culture - Preliminary 06/17/19 12:20 Anaerobic Culture - Preliminary Knee - Right Assessment and Plan (1) Impaired hearing Current Visit: Yes Status: Acute Code(s): H91.90 - UNSPECIFIED HEARING LOSS, UNSPECIFIED EAR SNOMED Code(s): 00498226 (2) Hypertension Current Visit: Yes Status: Acute Code(s): I10 - ESSENTIAL (PRIMARY) HYPERTENSION SNOMED Code(s): 77629047 (3) Cardiac disease Current Visit: Yes Status: Acute Code(s): I51.9 - HEART DISEASE, UNSPECIFIED SNOMED Code(s): 52560704 (4) Osteoarthritis of right knee Current Visit: Yes Status: Acute Code(s): M17.11 - UNILATERAL PRIMARY OSTEOARTHRITIS, RIGHT KNEE SNOMED Code(s): 283230867185552 (5) Status post total right knee replacement Current Visit: Yes Status: Acute Code(s): Z96.651 - PRESENCE OF RIGHT ARTIFICIAL KNEE JOINT SNOMED Code(s): 2218619461219 Plan: The clinical findings are discussed with the patient. We're planning discharge to inpatient rehab on Monday. He'll continue with physical therapy.
--- NOTE | 2019-06-18 11:59 | P.PN ---
Subjective Progress Note Date: 06/18/19 Principal diagnosis: Medical management Patient was seen and examined. No acute events overnight. Last "rehab. Patient reports well controlled right knee pain and has been ambulating the hallways with the aid of PT and fully walker. He denies any chest pain, shortness breath or palpitations. No nausea or vomiting. No fever or chills. Objective - Vital Signs Vital signs: Vital Signs Temp 98.1 F 06/18/19 07:16 Pulse 65 06/18/19 10:27 Resp 18 06/18/19 10:27 BP 123/73 06/18/19 07:16 Pulse Ox 96 06/18/19 07:16 Intake & Output 06/17/19 06/18/19 06/18/19 18:59 06:59 18:59 Intake Total 1317 1420 296 Output Total 50 600 Balance 1267 820 296 Weight 81 kg Intake: IV 1021 Intake, IV Titration 1300 Amount Lactated Ringers 1,000 ml 1200 @ 100 mls/hr IV .Q10H [facility] Rx#:[id number] ceFAZolin 2 gm In Sodium 100 Chloride 0.9% 50 ml @ 100 mls/hr IVPB ONCE ONE Rx# :[id number] Oral 296 120 296 Output: Urine 600 Estimated Blood Loss 50 Other: Voiding Method Urinal Toilet # Voids 2 - Exam General: [non toxic], [no distress], [appears at stated age] Derm: [warm], [dry] Head: [atraumatic], [normocephalic], [symmetric] Eyes: [EOMI], [no lid lag], [anicteric sclera] Mouth: [no lip lesion], [mucus membranes moist] Cardiovascular: [S1S2 reg], [mild systolic murmur], [positive DP pulse bilateral], [midsternal scar] Lungs: [CTA bilateral], [no rhonchi, no rales] , [no accessory muscle use] Abdominal: [soft], [ nontender to palpation], [no guarding], [no appreciable organomegaly] Ext: [no gross muscle atrophy], [no edema], [no contractures], [right knee dressed dressing clean dry and intact with pain pump] Neuro: [no focal neuro deficits] Psych: [Alert], [oriented], [appropriate affect] - Labs CBC & Chem 7: 06/18/19 06:24 Labs: Abnormal Lab Results - Last 24 Hours (Table) 06/18/19 Range/Units 06:24 WBC 12.0 H (3.8-10.6) k/uL RBC 3.80 L (4.30-5.90) m/uL Hgb 10.8 L (13.0-17.5) gm/dL Hct 32.4 L (39.0-53.0) % Neutrophils # 10.2 H (1.3-7.7) k/uL Lymphocytes # 0.7 L (1.0-4.8) k/uL Microbiology - Last 24 Hours (Table) 06/17/19 12:20 Gram Stain - Preliminary Knee - Right Wound Culture - Preliminary 06/17/19 12:20 Anaerobic Culture - Preliminary Knee - Right Assessment and Plan Assessment: Hypertension Leukocytosis Anemia Sinusitis Right knee ulcer arthritis post replacement POD 0 BP 123/73. Plans: Continue amlodipine, lisinopril, hydrochlorothiazide, metoprolol. Monitor vitals, adjust medications as necessary. WBC count 12. Likely related to stress from surgery. No signs of infection. Afebrile. Plans: Continue to monitor. Hemoglobin 10.8. Normocytic. Likely acute blood loss from surgery. Plans: Continue to monitor. Transfuse if hemoglobin less than 7. Plans: Flonase. Plans: Management as per orthopedic surgery. [Patient has progressed well since his surgery. Working with PT. No complaints. Plans for discharge to rehab on Monday.]
[2019-06-18] MEDS: LACTATED RINGERS 1,000 ML IV SCH ×3 (16:26→23:32)
[2019-06-18] MEDS: LISINOPRIL 20 MG TAB PO SCH (20:26)
[2019-06-18] MEDS: ATORVASTATIN 10 MG TAB PO SCH (20:26)
[2019-06-18] MEDS: SENNOSIDES-DOCUSATE SODIUM 1 EACH TAB PO SCH (20:26)
[2019-06-18] MEDS: METOPROLOL TARTRATE 25 MG TAB PO SCH (20:26)
[2019-06-18] MEDS: amLODIPine 5 MG TAB PO SCH (20:28)
--- NOTE | 2019-06-19 08:25 | P.PN ---
Subjective Progress Note Date: 06/19/19 Principal diagnosis: Primary osteoarthritis right knee. Status post total right knee arthroplasty. This is an 88-year-old male who is postop day #1 status post total right knee arthroplasty. He is doing fairly well with no new complaints or concerns. He is sitting up in chair. His vital signs and labs are stable. Objective - Vital Signs Vital signs: Vital Signs Temp 99.0 F 06/19/19 07:28 Pulse 67 06/19/19 07:28 Resp 18 06/19/19 07:28 BP 153/70 06/19/19 07:28 Pulse Ox 96 06/19/19 00:15 Intake & Output 06/18/19 06/19/19 06/19/19 18:59 06:59 18:59 Intake Total 888 1350 296 Balance 888 1350 296 Intake: Intake, IV Titration 1200 Amount Lactated Ringers 1,000 ml 1200 @ 100 mls/hr IV .Q10H [facility] Rx#:[id number] Oral 888 150 296 Other: Voiding Method Toilet # Voids 2 1 1 - Exam This is a pleasant 88-year-old male in no acute distress. He is alert and oriented 3. Exam of the right knee reveals that his dressing is clean, dry and intact. He has full foot and ankle motion without difficulty or pain. He has full active extension of the knee and flexion to 90. Neurovascular status to the lower extremity is intact. - Labs CBC & Chem 7: 06/18/19 06:24 Labs: Microbiology - Last 24 Hours (Table) 06/17/19 12:20 Gram Stain - Preliminary Knee - Right Wound Culture - Preliminary Assessment and Plan (1) Impaired hearing Current Visit: Yes Status: Acute Code(s): H91.90 - UNSPECIFIED HEARING LOSS, UNSPECIFIED EAR SNOMED Code(s): 55900854 (2) Hypertension Current Visit: Yes Status: Acute Code(s): I10 - ESSENTIAL (PRIMARY) HYPERTENSION SNOMED Code(s): 37234735 (3) Cardiac disease Current Visit: Yes Status: Acute Code(s): I51.9 - HEART DISEASE, UNSPECIFIED SNOMED Code(s): 54761450 (4) Osteoarthritis of right knee Current Visit: Yes Status: Acute Code(s): M17.11 - UNILATERAL PRIMARY OSTEOARTHRITIS, RIGHT KNEE SNOMED Code(s): 594887632308332 (5) Status post total right knee replacement Current Visit: Yes Status: Acute Code(s): Z96.651 - PRESENCE OF RIGHT ARTIFICIAL KNEE JOINT SNOMED Code(s): 8554593186348 Plan: The clinical findings are discussed with the patient. We're planning discharge to inpatient rehab on Monday. He'll continue with physical therapy.
[2019-06-19] MEDS: LISINOPRIL-HCTZ 20-12.5 MG 1 EACH TAB PO SCH (09:33)
[2019-06-19] MEDS: MELOXICAM 7.5 MG TAB PO SCH (09:34)
[2019-06-19] MEDS: ASPIRIN 325 MG TAB PO SCH ×2 (09:34→21:43)
--- NOTE | 2019-06-19 13:02 | P.PN ---
Subjective Progress Note Date: 06/19/19 Principal diagnosis: Medical management Patient was seen and examined. No acute events overnight. Family at bedside. Patient reported some increasing pain and discomfort in his right knee along with cramping and muscle spasms overnight which has currently resolved. Patient reports history of restless leg syndrome. He denies any chest pain, shortness breath or palpitations. No nausea or vomiting. No fever or chills. Objective - Vital Signs Vital signs: Vital Signs Temp 99.0 F 06/19/19 07:28 Pulse 67 06/19/19 07:28 Resp 18 06/19/19 07:28 BP 153/70 06/19/19 07:28 Pulse Ox 96 06/19/19 00:15 Intake & Output 06/18/19 06/19/19 06/19/19 18:59 06:59 18:59 Intake Total 888 1350 296 Balance 888 1350 296 Intake: Intake, IV Titration 1200 Amount Lactated Ringers 1,000 ml 1200 @ 100 mls/hr IV .Q10H [facility] Rx#:[id number] Oral 888 150 296 Other: Voiding Method Toilet # Voids 2 1 1 - Exam General: [non toxic], [no distress], [appears at stated age] Derm: [warm], [dry] Head: [atraumatic], [normocephalic], [symmetric] Eyes: [EOMI], [no lid lag], [anicteric sclera] Mouth: [no lip lesion], [mucus membranes moist] Cardiovascular: [S1S2 reg], [mild systolic murmur], [positive DP pulse bilateral], [midsternal scar] Lungs: [CTA bilateral], [no rhonchi, no rales] , [no accessory muscle use] Abdominal: [soft], [ nontender to palpation], [no guarding], [no appreciable organomegaly] Ext: [no gross muscle atrophy], [no edema], [no contractures], [right knee dressed dressing clean dry and intact with pain pump], [Wojciech sign negative right lower extremity] Neuro: [no focal neuro deficits] Psych: [Alert], [oriented], [appropriate affect] - Labs CBC & Chem 7: 06/18/19 06:24 Labs: Microbiology - Last 24 Hours (Table) 06/17/19 12:20 Gram Stain - Final Knee - Right Wound Culture - Final Assessment and Plan Assessment: Hypertension Leukocytosis Anemia Sinusitis Right knee ulcer arthritis post replacement POD 2 BP 153/70. Plans: Continue amlodipine, lisinopril, hydrochlorothiazide, metoprolol. Monitor vitals, adjust medications as necessary. WBC count 12. Likely related to stress from surgery. No signs of infection. Afebrile. Plans: Continue to monitor. Hemoglobin 10.8. Normocytic. Likely acute blood loss from surgery. Plans: Continue to monitor. Transfuse if hemoglobin less than 7. Plans: Flonase. Plans: Management as per orthopedic surgery. [Patient has progressed well since his surgery. Working with PT. No complaints. Plans for discharge to rehab on Monday.]
[2019-06-19] MEDS: HYDROcodone/APAP 5-325MG 1 EACH TAB PO PRN ×2 (13:10→21:44)
[2019-06-19] MEDS: LACTATED RINGERS 1,000 ML IV SCH (18:22)
[2019-06-19] MEDS: LISINOPRIL 20 MG TAB PO SCH (21:43)
[2019-06-19] MEDS: amLODIPine 5 MG TAB PO SCH (21:43)
[2019-06-19] MEDS: METOPROLOL TARTRATE 25 MG TAB PO SCH (21:43)
[2019-06-19] MEDS: ATORVASTATIN 10 MG TAB PO SCH (21:43)
[2019-06-19] MEDS: SENNOSIDES-DOCUSATE SODIUM 1 EACH TAB PO SCH (21:43)
[2019-06-20] MEDS: LACTATED RINGERS 1,000 ML IV SCH ×4 (03:00→23:36)
[2019-06-20 07:33] LABS: Basophils # (A) 0.1 k/uL (0-0.2); Basophils % (A) 1 %; Eosinophils # (A) 0.4 k/uL (0-0.7); Eosinophils % (A) 4 %; HCT 30.6 % (39.0-53.0); HGB 10.1 gm/dL (13.0-17.5); Lymphocytes # (A) 1.2 k/uL (1.0-4.8); Lymphocytes % (A) 11 %; MCH 28.3 pg (25.0-35.0); MCHC 32.9 g/dL (31.0-37.0); Mean Platelet Volume 7.5; Monocytes # (A) 0.9 k/uL (0-1.0); Monocytes % (A) 8 %; Neutrophils # (A) 8.3 k/uL (1.3-7.7); Neutrophils % (A) 75 %; Platelet Count 260 k/uL (150-450); RBC 3.56 m/uL (4.30-5.90); WBC 11.1 k/uL (3.8-10.6)
--- NOTE | 2019-06-20 09:00 | P.PN ---
Subjective Progress Note Date: 06/20/19 Principal diagnosis: Primary osteoarthritis right knee. Status post total right knee arthroplasty. This is an 88-year-old male who is postop day #3 status post total right knee arthroplasty. He is doing fairly well with no new complaints or concerns. He is sitting up in chair. His vital signs and labs are stable. Objective - Vital Signs Vital signs: Vital Signs Temp 98.2 F 06/20/19 08:24 Pulse 72 06/20/19 08:24 Resp 15 06/20/19 08:24 BP 107/64 06/20/19 08:24 Pulse Ox 94 L 06/20/19 08:24 Intake & Output 06/19/19 06/20/19 06/20/19 18:59 06:59 18:59 Intake Total 768 236 Balance 768 236 Intake: Oral 768 236 Other: Voiding Method Toilet # Voids 1 1 - Exam This is a pleasant 88-year-old male in no acute distress. He is alert and oriented 3. He is ambulating in the hallway with assistance. Exam of the rig ht knee reveals that his dressing is clean, dry and intact. He has full foot and ankle motion without difficulty or pain. He has full active extension of the knee and flexion to 90. Neurovascular status to the lower extremity is intact. - Labs CBC & Chem 7: 06/20/19 07:14 Labs: Abnormal Lab Results - Last 24 Hours (Table) 06/20/19 Range/Units 07:14 WBC 11.1 H (3.8-10.6) k/uL RBC 3.56 L (4.30-5.90) m/uL Hgb 10.1 L (13.0-17.5) gm/dL Hct 30.6 L (39.0-53.0) % Neutrophils # 8.3 H (1.3-7.7) k/uL Microbiology - Last 24 Hours (Table) 06/17/19 12:20 Anaerobic Culture - Preliminary Knee - Right 06/17/19 12:20 Gram Stain - Final Knee - Right Wound Culture - Final Assessment and Plan (1) Impaired hearing Current Visit: Yes Status: Acute Code(s): H91.90 - UNSPECIFIED HEARING LOSS, UNSPECIFIED EAR SNOMED Code(s): 27346266 (2) Hypertension Current Visit: Yes Status: Acute Code(s): I10 - ESSENTIAL (PRIMARY) HYPERTENSION SNOMED Code(s): 72837173 (3) Cardiac disease Current Visit: Yes Status: Acute Code(s): I51.9 - HEART DISEASE, UNSPECIFIED SNOMED Code(s): 90593448 (4) Osteoarthritis of right knee Current Visit: Yes Status: Acute Code(s): M17.11 - UNILATERAL PRIMARY OST EOARTHRITIS, RIGHT KNEE SNOMED Code(s): 496475120403035 (5) Status post total right knee replacement Current Visit: Yes Status: Acute Code(s): Z96.651 - PRESENCE OF RIGHT ARTIF ICIAL KNEE JOINT SNOMED Code(s): 8465340456888 Plan: The clinical findings are discussed with the patient. We're planning discharge to inpatient rehab on Monday. He'll continue with physical therapy.
[2019-06-20] MEDS: LISINOPRIL-HCTZ 20-12.5 MG 1 EACH TAB PO SCH (09:41)
[2019-06-20] MEDS: ASPIRIN 325 MG TAB PO SCH ×2 (09:44→22:29)
[2019-06-20] MEDS: MELOXICAM 7.5 MG TAB PO SCH (09:44)
--- NOTE | 2019-06-20 11:00 | P.PN ---
Subjective Chart was reviewed patient was seen and examined. Patient underwent elective right TKA. He has history of hypertension and moderate chronic renal insufficiency with preadmission creatinine of 1.47. This morning his feeling very well. He does not have any particular complaints. His blood pressure has been on the softer side this morning. Objective - Vital Signs Vital signs: Vital Signs Temp 98.2 F 06/20/19 08:24 Pulse 72 06/20/19 09:55 Resp 15 06/20/19 08:24 BP 107/64 06/20/19 08:24 Pulse Ox 94 L 06/20/19 08:24 Intake & Output 06/19/19 06/20/19 06/20/19 18:59 06:59 18:59 Intake Total 768 236 Balance 768 236 Intake: Oral 768 236 Other: Voiding Method Toilet # Voids 1 1 - Exam Vital Signs: I have reviewed the vital signs. GENERAL: Well-nourished, Well-developed , no apparent distress, cooperative Eyes: PERRL, extraoculry movements intact, clear conjunctiva Head: : Atraumatic external nose and ears, oropharyngeal mucosa is moist without lesions or exudates Neck: Symmetric, trachea midline, No thyromegaly, no masses or neck vain pulsation, no neck rigidity CVS: +S1/S2, No murmurs or gallops. Peripheral pulses 2+ and equal in all extremities. RESP: Unlabored respiratory effort. Clear to auscultation bilaterally. Abdomen: Bowel sounds present in all 4 quadrants, Soft to palpation, Nontender/Nondistended, No hepatosplenomegaly, no hernias or masses, no CVA tnderness Extremities: No peripheral edema - Labs CBC & Chem 7: 06/20/19 07:14 Labs: Abnormal Lab Results - Last 24 Hours (Table) 06/20/19 Range/Units 07:14 WBC 11.1 H (3.8-10.6) k/uL RBC 3.56 L (4.30-5.90) m/uL Hgb 10.1 L (13.0-17.5) gm/dL Hct 30.6 L (39.0-53.0) % Neutrophils # 8.3 H (1.3-7.7) k/uL Microbiology - Last 24 Hours (Table) 06/17/19 12:20 Anaerobic Culture - Preliminary Knee - Right 06/17/19 12:20 Gram Stain - Final Knee - Right Wound Culture - Final Assessment and Plan Plan: #Hypertension Blood pressure has been the softer side this morning We will hold his medications: Lisinopril, lisinoprilHCTZ and Norvasc. Based on blood pressure response we'll decide by tomorrow medications patient to be discharged on #CKD stage III Preadmission at 1.47 We'll repeat his BMP in the morning
[2019-06-20] MEDS: HYDROcodone/APAP 5-325MG 1 EACH TAB PO PRN ×2 (15:12→22:28)
[2019-06-20] MEDS: SENNOSIDES-DOCUSATE SODIUM 1 EACH TAB PO SCH (22:28)
[2019-06-20] MEDS: ATORVASTATIN 10 MG TAB PO SCH (22:29)
[2019-06-20] MEDS: METOPROLOL TARTRATE 25 MG TAB PO SCH (22:29)
[2019-06-21 01:47] VITALS: RESP 17; TEMP 97.7
[2019-06-21] MEDS: HYDROcodone/APAP 5-325MG 1 EACH TAB PO PRN ×2 (04:11→11:09)
[2019-06-21 07:37] VITALS: BP 150/66
[2019-06-21] MEDS: MELOXICAM 7.5 MG TAB PO SCH (07:59)
[2019-06-21] MEDS: ASPIRIN 325 MG TAB PO SCH (07:59)
[2019-06-21] MEDS: LACTATED RINGERS 1,000 ML IV SCH (08:01)
--- NOTE | 2019-06-21 08:39 | P.DS ---
Providers Date of admission: 06/18/19 11:01 Expected date of discharge: 06/21/19 Attending physician: Estrada Rolle Consults: 06/17/19 12:44 Consult Physician Routine Consulting Provider: Katie Castro Consult Reason/Comments: Medical management Do you want consulting provider notified?: Yes Primary care physician: Sergei Acevedo - Discharge Diagnosis(es) (1) Impaired hearing Current Visit: Yes Status: Acute (2) Hypertension Current Visit: Yes Status: Acute (3) Cardiac disease Current Visit: Yes Status: Acute (4) Osteoarthritis of right knee Current Visit: Yes Status: Acute (5) Status post total right knee replacement Current Visit: Yes Status: Acute Hospital Course: This is an 88-year-old male who was last seen with complaint of continued right knee pain. The patient has a known history of degenerative arthritis of the right knee and presents to discuss surgical options. After discussion and consideration the patient elects to proceed with total right knee arthroplasty. The patient is seen preoperatively by his primary care physician and cleared for surgery. The patient is admitted to [facility] for total right knee arthroplasty. The procedures performed without complication or sequelae. Patient is doing well postoperatively. Vital signs are stable at discharge. Labs are stable at discharge. the patient is ambulating well with walker with minimal assistance. The patient is discharged to home on postop day #4 pending medical clearance. Please see orders and refer to the [facility] rec for accurate list of medications. Patient Condition at Discharge: Good Plan - Discharge Summary Discharge Rx Participant: Yes New Discharge Prescriptions: New Aspirin 325 mg PO BID #60 tab Meloxicam [Mobic] 1 - 2 tab PO DAILY PRN #30 tab PRN Reason: Pain HYDROcodone/APAP 5-325MG [Arroyo 5-325] 1 - 2 each PO Q4-6H PRN #50 tab PRN Reason: Pain Sennosides-Docusate Sodium [Senokot-S] 1 tab PO BID #60 tablet Continue Sulindac 150 mg PO HS PRN PRN Reason: gout Metoprolol Tartrate [Lopressor] 25 mg PO HS Lisinopril-Hctz 20-12.5 mg [Zestoretic 20-12.5] 1 tab PO QAM Simvastatin [Zocor] 20 mg PO HS amLODIPine BESYLATE/BENAZEPRIL [Lotrel 5-20 MG] 1 cap PO HS Discontinued Aspirin EC [Ecotrin Low Dose] 81 mg PO DAILY Discharge Medication List Lisinopril-Hctz 20-12.5 mg [Zestoretic 20-12.5] 1 tab PO QAM 03/01/18 [History] Metoprolol Tartrate [Lopressor] 25 mg PO HS 03/01/18 [History] Simvastatin [Zocor] 20 mg PO HS 03/01/18 [History] Sulindac 150 mg PO HS PRN 03/01/18 [History] amLODIPine BESYLATE/BENAZEPRIL [Lotrel 5-20 MG] 1 cap PO HS 05/31/19 [History] Aspirin 325 mg PO BID #60 tab 06/17/19 [Rx] HYDROcodone/APAP 5-325MG [Arroyo 5-325] 1 - 2 each PO Q4-6H PRN #50 tab 06/17/19 [Rx] Meloxicam [Mobic] 1 - 2 tab PO DAILY PRN #30 tab 06/17/19 [Rx] Sennosides-Docusate Sodium [Senokot-S] 1 tab PO BID #60 tablet 06/17/19 [Rx] Follow up Appointment(s)/Referral(s): Stephie Charles, PAC [PHYSICIAN [facility]ER] - 06/27/19 2:30 pm Activity/Diet/Wound Care/Special Instructions: May shower if no drainage from incision. May bear wt as tolerated w walker. Resume aspirin 81 mg by mouth daily after completion of aspirin 325 mg by mouth for 30 days. Discharge Disposition: TRANSFER TO SNF/ECF
[2019-06-21 08:40] LABS: African American GFR (CKD) >90 (>60 ml/min/1.73 sqM); Anion Gap 8 mmol/L; Blood Urea Nitrogen 31 mg/dL (9-20); Calcium 8.6 mg/dL (8.4-10.2); Carbon Dioxide 26 mmol/L (22-30); Chloride 101 mmol/L (98-107); Glucose 121 mg/dL (74-99); Non-African American GFR(CKD) 78 (>60 ml/min/1.73 sqM); Potassium 4.3 mmol/L (3.5-5.1); Sodium 135 mmol/L (137-145)
[2019-06-21 10:53] VITALS: PULSE 64
--- NOTE | 2019-06-21 13:50 | P.PN ---
Subjective Chart was reviewed patient was seen and examined. Patient underwent elective right TKA. He has history of hypertension and moderate chronic renal insufficiency with preadmission creatinine of 1.47. This morning his feeling very well. He does not have any particular complaints. His blood pressure has been better. Objective - Vital Signs Vital signs: Vital Signs Temp 97.7 F 06/21/19 07:35 Pulse 64 06/21/19 10:48 Resp 17 06/21/19 07:35 BP 150/66 06/21/19 07:35 Pulse Ox 97 06/21/19 07:35 Intake & Output 06/20/19 06/21/19 06/21/19 18:59 06:59 18:59 Intake Total 472 Balance 472 Intake: Oral 472 Other: Voiding Method Toilet Toilet # Voids 3 1 # Bowel Movements 1 - Exam Vital Signs: I have reviewed the vital signs. GENERAL: Well-nourished, Well-developed , no apparent distress, cooperative Eyes: PERRL, extraoculry movements intact, clear conjunctiva Head: : Atraumatic external nose and ears, oropharyngeal mucosa is moist without lesions or exudates Neck: Symmetric, trachea midline, No thyromegaly, no masses or neck vain pulsation, no neck rigidity CVS: +S1/S2, No murmurs or gallops. Peripheral pulses 2+ and equal in all extremities. RESP: Unlabored respiratory effort. Clear to auscultation bilaterally. Abdomen: Bowel sounds present in all 4 quadrants, Soft to palpation, Nontender/Nondistended, No hepatosplenomegaly, no hernias or masses, no CVA tnd erness Extremities: Right lower extremity cough edema without any tenderness or warmth - Labs CBC & Chem 7: 06/20/19 07:14 06/21/19 07:23 Labs: Abnormal Lab Results - Last 24 Hours (Table) 06/21/19 Range/Units 07:23 Sodium 135 L (137-145) mmol/L BUN 31 H (9-20) mg/dL Glucose 121 H (74-99) mg/dL Microbiology - Last 24 Hours (Table) 06/17/19 12:20 Anaerobic Culture - Final Knee - Right Assessment and Plan Plan: #Hypertension Blood pressure has been much better yesterday afternoon and this morning Discharge plan: No changes in blood pressure medications on discharge #CKD stage III Preadmission at 1.47 Creatinine has been stable and no any electrolyte abnormalities Stable for discharge from medicine standpoint
== END 2019-06-21 12:08 | DRG 470 ==
LOC: OR 07:58 → 4SSUR 12:50 → OR 06-18 15:03
PROVIDERS: ADMIT Orthopaedic Surgery; ATTEND Orthopaedic Surgery
PROC: 0SRC0J9 Replacement of Right Knee Joint with Synthetic Substitute, Cemented, Open Approach (ICD-10-PCS; principal; 2019-06-17 10:10)
DX: M17.11 Unilateral primary osteoarthritis, right knee (principal); L97.819 Non-pressure chronic ulcer of other part of right lower leg with unspecified severity; M21.161 Varus deformity, not elsewhere classified, right knee; D64.9 Anemia, unspecified; D72.829 Elevated white blood cell count, unspecified; E78.5 Hyperlipidemia, unspecified; G25.81 Restless legs syndrome; H91.90 Unspecified hearing loss, unspecified ear; N18.3 Chronic kidney disease, stage 3 (moderate); I12.9 Hypertensive chronic kidney disease with stage 1 through stage 4 chronic kidney disease, or unspecified chronic kidney disease; I25.10 Atherosclerotic heart disease of native coronary artery without angina pectoris; Z79.82 Long term (current) use of aspirin; Z80.52 Family history of malignant neoplasm of bladder; Z95.1 Presence of aortocoronary bypass graft; J32.9 Chronic sinusitis, unspecified; Z88.2 Allergy status to sulfonamides; Z79.899 Other long term (current) drug therapy
CPT/HCPCS: 64448; 76942; 80048; 85025; 87070; 87075; 87205; 88300; 88305

== ENCOUNTER → 2019-06-26 | Outpatient (CLI) | payer MEDICARE, BC ==
--- NOTE | 2019-06-26 15:28 | US ---
EXAMINATION TYPE: US venous doppler duplex LE RT DATE OF EXAM: 06/26/2019 3:15 PM COMPARISON: NONE CLINICAL HISTORY: RLE Pain in knee M25.561. Right knee replacement 8 days ago, right knee swelling an d redness SIDE PERFORMED: Right TECHNIQUE: The lower extremity deep venous system is examined utilizing real time linear array sonog reynaldo with graded compression, doppler sonography and color-flow sonography. VESSELS IMAGED: External Iliac Vein (EIV) Common Femoral Vein Deep Femoral Vein Greater Saphenous Vein * Femoral Vein Popliteal Vein Small Saphenous Vein * Proximal Calf Veins (* superficial vessels) Grayscale, color doppler, spectral doppler imaging performed of the deep veins of the right lower ext remity. There is normal flow, compressibility, vascular waveforms. Right Leg: Appears negative for DVT IMPRESSION: No sonographic evidence of deep venous thrombosis within the right lower extremity.
== END | disposition home or self-care (01) ==
LOC: RADUSWWP 14:41
PROVIDERS: ATTEND Orthopaedic Surgery
DX: Z47.1 Aftercare following joint replacement surgery (principal); I80.9 Phlebitis and thrombophlebitis of unspecified site; I11.9 Hypertensive heart disease without heart failure; M17.11 Unilateral primary osteoarthritis, right knee; M79.661 Pain in right lower leg

== ENCOUNTER → 2021-03-15 | Outpatient (CLI) | payer MEDICARE, BC ==
--- NOTE | 2021-03-15 22:08 | CT ---
EXAMINATION TYPE: CT brain arabella latif DATE OF EXAM: 03/15/2021 COMPARISON: CT brain March 01, 2018 HISTORY: Fall at home, hitting head, dizziness. Neck pain. Repeated falls. CT DLP: 1691 mGycm. Automated Exposure Control for Dose Reduction was Utilized. TECHNIQUE: CT scan of the head and cervical spine are performed without contrast. FINDINGS: There is no acute intracranial hemorrhage or midline shift identified. Mild ventricular and sulcal prominence. 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 Moderate Low attenuation in the deep and periventricular white matter again seen more prominent from prior. The globes are intact and the visualized sinuses are clear. Cervical spine is visualized in its entirety from C1 through upper thoracic levels and demonstrates s table and satisfactory alignment without evidence of acute fracture or dislocation. Prevertebral sof t tissue remains within normal limits. The C1-C2 articulation is within normal limits on the coronal images. Vertebral body heights are preserved. Moderate disc space narrowing and spurring C6-C7 leve l is present. Posterior spur disc complexes efface the anterior thecal sac at C5-C6 and C6-C7 level. Axial images show significant multilevel uncovertebral facet degenerative changes contributing to mul tilevel neural foraminal narrowing for reference left C2-C3 level and bilateral C3-C4 and C4-C5 level s. Moderate calcified plaque left carotid bulb. Mild Calcified plaque right carotid bulb. IMPRESSION: 1. There is no acute or subacute fracture or dislocation evident in the cervical spine. 2. No acute intracranial hemorrhage or midline shift is seen. 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
== END | disposition home or self-care (01) ==
LOC: RADCTMAIN 16:29
PROVIDERS: ATTEND Internal Medicine
DX: R42 Dizziness and giddiness (principal); M54.2 Cervicalgia; S09.90XA Unspecified injury of head, initial encounter; S19.9XXA Unspecified injury of neck, initial encounter
CPT/HCPCS: 70450; 72125

== ENCOUNTER → 2021-09-02 | Outpatient (CLI) | payer MEDICARE, BC ==
--- NOTE | 2021-09-02 16:50 | XR ---
EXAMINATION TYPE: XR hand limited LT DATE OF EXAM: 09/02/2021 COMPARISON: None available INDICATION: Pain in the left hand TECHNIQUE: 2 views of the left hand FINDINGS: Degenerative changes of the interphalangeal joints most evident involving the first interphalangeal a nd second distal interphalangeal joints with osteophytosis and narrowing of joint spaces. Degenerative changes are also seen involving the first carpometacarpal articulation as well as the se cond, third and fifth metacarpophalangeal joints. No definite acute fracture line identified. Soft tissue swelling adjacent to the second and third met acarpophalangeal joints. IMPRESSION: Degenerative changes as described above.
== END | disposition home or self-care (01) ==
LOC: RADXRMAIN 09:42
PROVIDERS: ATTEND Internal Medicine
DX: M19.042 Primary osteoarthritis, left hand (principal)

== ENCOUNTER → 2021-10-15 | Outpatient (CLI) | payer MEDICARE, BC ==
--- NOTE | 2021-10-15 12:05 | US ---
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 Patient states he has been getting d farrukh. HTN controlled with meds. EXAM MEASUREMENTS: RIGHT: Peak Systolic Velocity (PSV) cm/sec ----- Right CCA: 50.5 ----- Right ICA: 104.7 ----- Right ECA: 147.6 ICA/CCA ratio: 2.1 RIGHT: End Diastole cm/sec ----- Right CCA: 0.0 ----- Right ICA: 19.3 ----- Right ECA: 0.0 LEFT: Peak Systolic Velocity (PSV) cm/sec ----- Left CCA: 46.2 ----- Left ICA: 96.3 ----- Left ECA: N/A ICA/CCA ratio: 2.1 LEFT: End Diastole cm/sec ----- Left CCA: 11.3 ----- Left ICA: 23.7 ----- Left ECA: N/A VERTEBRALS (direction of flow): Right Vertebral: Antegrade Left Vertebral: Antegrade Rhythm: Normal Bilateral wall thickening. Bilateral significant stenosis. Plaque bilateral bulbs. Unable to accura tely visualize and determine vascularity in left ECA. Elevated right ECA velocity. IMPRESSION: 1. Atheromatous plaquing present bilaterally. No internal carotid artery stenosis by velocity measure ments are evident. 2. May be obstruction of the left external carotid artery. Clinical correlation recommended Criteria for Assigning % of Stenosis / Diameter reduction (Estimation based on the indirect measurements of the internal carotid artery velocities (ICA PSV). 1. Normal (no stenosis)=ICA PSV < 125 cm/s: ratio < 2.0: ICA EDV<40 cm/s. 2. Less than 50% stenosis=ICA PSV < 125 cm/s: ratio < 2.0: ICA EDV<40 cm/s. 3. 50 to 69% stenosis=ICA PSV of 125 to 230 cm/s: ration 2.0 ? 4.0: ICA EDV 40-100 cm/s. 4. Greater than 70% stenosis to near occlusion= ICA PSV > 230 cm/s: ratio > 4.0: ICA EDV > 100 cm/s. 5. Near occlusion= ICA PSV velocities may be low or undetectable: variable ratio and ICA EDV. 6. Total occlusion=unable to detect flow.
== END | disposition home or self-care (01) ==
LOC: RADUSWWP 10:33
PROVIDERS: ATTEND Psychiatry & Neurology Neurology
DX: I65.23 Occlusion and stenosis of bilateral carotid arteries (principal); I10 Essential (primary) hypertension
CPT/HCPCS: 93880

== ENCOUNTER 2022-01-11 15:26 | Emergency (ER) | payer MEDICARE, BC ==
[2022-01-11 15:39] VITALS: TEMP 97.8
--- NOTE | 2022-01-11 16:31 | ED ---
GI Bleed HPI - General Chief complaint: GI Bleed Stated complaint: blood in stool Time Seen by Provider: 01/11/22 16:19 Source: patient, RN notes reviewed, old records reviewed Mode of arrival: ambulatory Limitations: no limitations - History of Present Illness Initial comments: This is a well-appearing 89-year-old male that presents ambulatory with com plaints of 2 episodes of black tarry stools. He states his first episode was Monday and he had another episode today. He denies any other abnormal bleeding. No previous history of rectal bleeding. He denies any pain or discomfort. No chest pain or shortness of breath. He states that he only takes an aspirin a day. MD complaint: melena Radiation: none Severity scale (1-10): 0 Quality: painless Consistency: intermittent Improves with: none Worsens with: none Associated Symptoms: denies other symptoms - Related Data Home Medications Medication Instructions Recorded Confirmed Metoprolol Tartrate [Lopressor] 25 mg PO HS 03/01/18 01/11/22 Simvastatin [Zocor] 20 mg PO HS 03/01/18 01/11/22 Sulindac 150 mg PO HS PRN 03/01/18 01/11/22 Aspirin EC [Ecotrin Low Dose] 81 mg PO HS 01/11/22 01/11/22 Cyanocobalamin (Vitamin B-12) 1,000 mcg PO DAILY 01/11/22 01/11/22 [Vitamin B-12] lisinopriL [Prinivil] 10 mg PO DAILY 01/11/22 01/11/22 Allergies Allergy/AdvReac Type Severity Reaction Status Date / Time Sulfa (Sulfonamide Allergy Unknown Rash/Hives Verified 01/11/22 18:03 Antibiotics) Review of Systems ROS Statement: Those systems with pertinent positive or pertinent negative responses have been documented in the HPI. ROS Other: All systems not noted in ROS Statement are negative. Past Medical History Past Medical History: Diabetes Mellitus, Hearing Disorder / Deafness, Hyperlipidemia, Hypertension Additional Past Medical History / Comment(s): [place] History of Any Multi-Drug Resistant Organisms: None Reported Past Surgical History: Coronary Bypass/CABG, Orthopedic Surgery Additional Past Surgical History / Comment(s): bypass 2004, right knee Past Anesthesia/Blood Transfusion Reactions: No Reported Reaction Past Psychological History: No Psychological Hx Reported Smoking Status: Never smoker Past Alcohol Use History: Daily Past Drug Use History: None Reported - Past Family History Father Family Medical History: Cancer Additional Family Medical History / Comment(s): bladder cancer General Exam Limitations: no limitations General appearance: alert, in no apparent distress Head exam: Present: atraumatic, normocephalic Eye exam: Present: other (No pallor). Absent: scleral icterus, conjunctival injection, nystagmus, periorbital swelling, periorbital tenderness ENT exam: Present: mucous membranes moist Neck exam: Present: full ROM. Absent: tenderness, meningismus, lymphadenopathy Respiratory exam: Present: rales (Bilateral bases). Absent: respiratory distress, rhonchi, stridor, chest wall tenderness, accessory muscle use, decreased breath sounds Cardiovascular Exam: Present: regular rate GI/Abdominal exam: Present: soft. Absent: distended, tenderness Rectal exam: Present: normal rectal tone, black stool. Absent: mass, tenderness Extremities exam: Present: normal capillary refill. Absent: tenderness, pedal edema, calf tenderness Back exam: Absent: tenderness, CVA tenderness (R), CVA tenderness (L) Neurological exam: Present: alert, oriented X3 Psychiatric exam: Present: normal affect, normal mood Skin exam: Present: warm, dry, normal color. Absent: cyanosis, diaphoretic, petechiae, pallor Course Vital Signs 01/11/22 01/11/22 15:35 19:30 Temperature 97.8 F Pulse Rate 75 70 Respiratory 20 18 Rate Blood Pressure 186/86 218/106 O2 Sat by Pulse 98 96 Oximetry Medical Decision Making - Medical Decision Making Patient presents with 2 episodes of dark black stool concerned for rectal bleeding. Guaiac occult blood negative. Hemoglobin and hematocrit are stable. Patient's abdomen is soft nontender. Patient denies any nausea vomiting or miguelina rrhea. Denies any hematochezia or hematemesis. Denies any chest pain or difficulty breathing. Blood pressure is elevated case was signed out to Dr. Linda for disposition. - Lab Data Result diagrams: 01/11/22 17:07 01/11/22 17:07 Lab Results 01/11/22 01/11/22 01/11/22 Range/Units 17:07 17:07 17:07 WBC 8.2 (3.8-10.6) k/uL RBC 4.40 (4.30-5.90) m/uL Hgb 13.4 (13.0-17.5) gm/dL Hct 38.8 L (39.0-53.0) % MCV 88.2 (80.0-100.0) fL MCH 30.4 (25.0-35.0) pg MCHC 34.5 (31.0-37.0) g/dL RDW 13.9 (11.5-15.5) % Plt Count 262 (150-450) k/uL MPV 7.0 Neutrophils % 62 % Lymphocytes % 22 % Monocytes % 7 % Eosinophils % 5 % Basophils % 1 % Neutrophils # 5.1 (1.3-7.7) k/uL Lymphocytes # 1.8 (1.0-4.8) k/uL Monocytes # 0.6 (0-1.0) k/uL Eosinophils # 0.4 (0-0.7) k/uL Basophils # 0.1 (0-0.2) k/uL PT 10.1 (9.0-12.0) sec INR 0.9 (<1.2) APTT 24.2 (22.0-30.0) sec Sodium 138 (137-145) mmol/L Potassium 4.1 (3.5-5.1) mmol/L Chloride 103 (98-107) mmol/L Carbon Dioxide 23 (22-30) mmol/L Anion Gap 12 mmol/L BUN 18 (9-20) mg/dL Creatinine 0.82 (0.66-1.25) mg/dL Est GFR (CKD-EPI)AfAm >90 (>60 ml/min/1.73 sqM) Est GFR (CKD-EPI)NonAf 78 (>60 ml/min/1.73 sqM) Glucose 124 H (74-99) mg/dL Calcium 9.2 (8.4-10.2) mg/dL Total Bilirubin 0.3 (0.2-1.3) mg/dL AST 19 (17-59) U/L ALT 10 (4-49) U/L Alkaline Phosphatase 64 (38-126) U/L Troponin I (0.000-0.034) ng/mL Total Protein 6.5 (6.3-8.2) g/dL Albumin 4.0 (3.5-5.0) g/dL Stool Occult Blood (Negative) 01/11/22 01/11/22 Range/Units 17:07 17:07 WBC (3.8-10.6) k/uL RBC (4.30-5.90) m/uL Hgb (13.0-17.5) gm/dL Hct (39.0-53.0) % MCV (80.0-100.0) fL MCH (25.0-35.0) pg MCHC (31.0-37.0) g/dL RDW (11.5-15.5) % Plt Count (150-450) k/uL MPV Neutrophils % % Lymphocytes % % Monocytes % % Eosinophils % % Basophils % % Neutrophils # (1.3-7.7) k/uL Lymphocytes # (1.0-4.8) k/uL Monocytes # (0-1.0) k/uL Eosinophils # (0-0.7) k/uL Basophils # (0-0.2) k/uL PT (9.0-12.0) sec INR (<1.2) APTT (22.0-30.0) sec Sodium (137-145) mmol/L Potassium (3.5-5.1) mmol/L Chloride (98-107) mmol/L Carbon Dioxide (22-30) mmol/L Anion Gap mmol/L BUN (9-20) mg/dL Creatinine (0.66-1.25) mg/dL Est GFR (CKD-EPI)AfAm (>60 ml/min/1.73 sqM) Est GFR (CKD-EPI)NonAf (>60 ml/min/1.73 sqM) Glucose (74-99) mg/dL Calcium (8.4-10.2) mg/dL Total Bilirubin (0.2-1.3) mg/dL AST (17-59) U/L ALT (4-49) U/L Alkaline Phosphatase (38-126) U/L Troponin I <0.012 (0.000-0.034) ng/mL Total Protein (6.3-8.2) g/dL Albumin (3.5-5.0) g/dL Stool Occult Blood Negative (Negative) - EKG Data EKG shows normal: sinus rhythm (Ventricular rate 63, NM interval 0.198, QRS 0.121, QTC 0.422; normal axis) Disposition Clinical Impression: Dark stools Disposition: HOME SELF-CARE Condition: Good Instructions (If sedation given, give patient instructions): Normal Exam (ED) Additional Instructions: Follow-up with your primary care doctor as needed. Return to the emergency room with any new or concerning symptoms. Is patient prescribed a controlled substance at d/c from ED?: No Referrals: Mark Martin MD [Primary Care Provider] - 1-2 days
[2022-01-11 17:19] LABS: Basophils # (A) 0.1 k/uL (0-0.2); Basophils % (A) 1 %; Eosinophils # (A) 0.4 k/uL (0-0.7); Eosinophils % (A) 5 %; HCT 38.8 % (39.0-53.0); HGB 13.4 gm/dL (13.0-17.5); Lymphocytes # (A) 1.8 k/uL (1.0-4.8); Lymphocytes % (A) 22 %; MCH 30.4 pg (25.0-35.0); MCHC 34.5 g/dL (31.0-37.0); MCV 88.2 fL (80.0-100.0); Monocytes # (A) 0.6 k/uL (0-1.0); Monocytes % (A) 7 %; Neutrophils # (A) 5.1 k/uL (1.3-7.7); Neutrophils % (A) 62 %; Platelet Count 262 k/uL (150-450); RDW 13.9 % (11.5-15.5); WBC 8.2 k/uL (3.8-10.6)
[2022-01-11 17:28] LABS: INR 0.9 (<1.2); Partial Thromboplastin Time 24.2 sec (22.0-30.0); Prothrombin Time 10.1 sec (9.0-12.0)
[2022-01-11 17:31] LABS: ALT 10 U/L (4-49); AST 19 U/L (17-59); African American GFR (CKD) >90 (>60 ml/min/1.73 sqM); Alkaline Phosphatase 64 U/L (38-126); Anion Gap 12 mmol/L; Blood Urea Nitrogen 18 mg/dL (9-20); Calcium 9.2 mg/dL (8.4-10.2); Carbon Dioxide 23 mmol/L (22-30); Chloride 103 mmol/L (98-107); Glucose 124 mg/dL (74-99); Non-African American GFR(CKD) 78 (>60 ml/min/1.73 sqM); Potassium 4.1 mmol/L (3.5-5.1); Sodium 138 mmol/L (137-145); Total Bilirubin 0.3 mg/dL (0.2-1.3); Total Protein 6.5 g/dL (6.3-8.2)
[2022-01-11] MEDS ORDERED: LABETALOL SYRINGE 5 MG/ML IVP STA (18:24)
[2022-01-11 19:31] VITALS: BP 218/106; PULSE 70; RESP 18
== END 2022-01-11 19:30 | disposition home or self-care (01) ==
LOC: EC 15:26
DX: K92.1 Melena (principal); E11.9 Type 2 diabetes mellitus without complications; H91.90 Unspecified hearing loss, unspecified ear; I10 Essential (primary) hypertension; E78.5 Hyperlipidemia, unspecified; Z88.2 Allergy status to sulfonamides; Z79.899 Other long term (current) drug therapy; Z79.82 Long term (current) use of aspirin
CPT/HCPCS: 36415; 80053; 82272; 84484; 85025; 85610; 85730; 93005; 99283